=== PATIENT | female | born 1960 | race Caucasian/White ===

== ENCOUNTER 2024-09-04 12:05 | Emergency (ER) | payer OTHER ==
[~2024-09-04] VITALS: Ht 167.6 cm; Wt 79.1 kg
[2024-09-04 12:07] VITALS: BP 139/77; PULSE 70; O2SAT 97
[2024-09-04 13:02] VITALS: RESP 17; TEMP 98.6
== END 2024-09-04 13:03 | disposition home or self-care (01) ==
LOC: ER 12:06
DX: S56.418A Strain of extensor muscle, fascia and tendon of left little finger at forearm level, initial encounter (principal); Z88.0 Allergy status to penicillin; W20.8XXA Other cause of strike by thrown, projected or falling object, initial encounter; Y93.89 Activity, other specified; Y92.89 Other specified places as the place of occurrence of the external cause; Y99.0 Civilian activity done for income or pay
CPT/HCPCS: 73140; 99283

== ENCOUNTER 2024-11-12 05:40 | Outpatient (CLI) | payer OTHER | END 2024-11-12 23:59 | disposition home or self-care (01) | LOC: MRI02 05:40 | PROVIDERS: ATTEND Student in an Organized Health Care Education/Training Program | DX: S63.203A Unspecified subluxation of left middle finger, initial encounter (principal); M25.442 Effusion, left hand; X58.XXXA Exposure to other specified factors, initial encounter; Y93.89 Activity, other specified; Y92.89 Other specified places as the place of occurrence of the external cause; Y99.8 Other external cause status | CPT/HCPCS: 73218 ==